=== PATIENT | male | born 1980 | race Asian ===

== ENCOUNTER 2021-09-25 17:31 | Inpatient (IN) | payer OTHER ==
[2021-09-25 20:50] VITALS: BMI 21.2
[2021-09-25] MEDS ORDERED: MENTHOL/PHENOL 1 EACH UD MM PRN (22:54)
[2021-09-25] MEDS ORDERED: DICYCLOMINE HCL 10 MG CAPSULE PO PRN (22:54)
[2021-09-25] MEDS ORDERED: MAGNESIUM CITRATE 300 ML BOTTLE PO PRN (22:54)
[2021-09-25] MEDS ORDERED: IBUPROFEN 400 MG TABLET (FP) PO PRN (22:54)
[2021-09-25] MEDS ORDERED: BISMUTH SUBSALICYLATE 524 MG/30 ML PO PRN (22:54)
[2021-09-25] MEDS ORDERED: ONDANSETRON *ODT* 4 MG TABLET SL PRN (22:54)
[2021-09-25] MEDS ORDERED: MAGNESIUM HYDROX 2400MG/30ML ORAL SUSPENSION 30 ML CUP PO PRN (22:54)
[2021-09-25] MEDS ORDERED: NICOTINE POLACRILEX 2 MG GUM BUC PRN (22:54)
[2021-09-25] MEDS ORDERED: MAG HYDROX/AL HYDROX/SIMETH 30 ML UNIT-DOSE CUP PO PRN (22:54)
[2021-09-25] MEDS ORDERED: ACETAMINOPHEN 325 MG TABLET (FP) PO PRN (22:54)
[2021-09-26] MEDS: chlordiazePOXIDE HCL 25 MG CAPSULE PO SCH ×5 (02:28→22:47)
[2021-09-26] MEDS: PRENATAL VITAMINS W/ FOLIC ACID TABLET (FP) PO SCH (10:28)
[2021-09-26 12:29] LABS: HEMATOCRIT 36.6 % (35.4-49); HEMOGLOBIN 11.8 GM/dL (11.7-16.9); MCH 32.9 pg (25.7-33.7); MCHC 32.2 g/dl (32.0-35.9); MEAN PLT VOLUME 8.4 fl (7.5-11.1); PLATELET COUNT 317 10^3/uL (134-434); RBC 3.59 M/mm3 (4.00-5.60); RDW 13.8 % (11.9-15.9); WHITE BLOOD COUNT 7.5 K/mm3 (4.0-10.0)
[2021-09-26 12:34] LABS: BILIRUBIN,TOTAL 0.4 mg/dL (0.2-1); CREATININE 0.9 mg/dL (0.55-1.3); TOT PROT 6.9 g/dl (6.4-8.2)
[2021-09-26 12:37] LABS: ALBUMIN 3.1 g/dl (3.4-5.0)
[2021-09-26 12:38] LABS: BLOOD UREA NITROGEN 10.3 mg/dL (7-18)
[2021-09-26 12:39] LABS: CALCIUM 9.3 mg/dL (8.5-10.1)
[2021-09-26] MEDS: ACETAMINOPHEN 325 MG TABLET (FP) PO PRN (13:45)
[2021-09-26] MEDS: THIAMINE HCL 100 MG TABLET (FP) PO SCH (22:46)
[2021-09-26] MEDS: MELATONIN 5 MG TABLETS PO SCH (22:46)
[2021-09-27] MEDS: chlordiazePOXIDE HCL 25 MG CAPSULE PO PRN ×2 (02:18→12:39)
[2021-09-27] MEDS: chlordiazePOXIDE HCL 25 MG CAPSULE PO SCH ×4 (05:58→22:17)
[2021-09-27] MEDS: METHOCARBAMOL 500 MG TABLET PO PRN ×2 (06:00→23:35)
[2021-09-27] MEDS: PRENATAL VITAMINS W/ FOLIC ACID TABLET (FP) PO SCH (10:27)
[2021-09-27] MEDS ORDERED: MODERNA COVID-19 VACC,MRNA/PF 100 MCG/0.5 ML IM ONE (13:00)
[2021-09-27] MEDS: hydrOXYzine PAMOATE 25 MG CAPSULE (FP) PO PRN ×2 (18:02→22:19)
[2021-09-27] MEDS: THIAMINE HCL 100 MG TABLET (FP) PO SCH (22:17)
[2021-09-27] MEDS: MELATONIN 5 MG TABLETS PO SCH (22:18)
[2021-09-28] MEDS: chlordiazePOXIDE HCL 10 MG CAPSULE PO PRN ×2 (02:07→19:16)
[2021-09-28] MEDS: hydrOXYzine PAMOATE 25 MG CAPSULE (FP) PO PRN ×3 (04:48→22:15)
[2021-09-28] MEDS: chlordiazePOXIDE HCL 10 MG CAPSULE PO SCH ×4 (04:49→22:14)
[2021-09-28] MEDS: ACETAMINOPHEN 325 MG TABLET (FP) PO PRN ×2 (06:45→16:33)
[2021-09-28] MEDS: PRENATAL VITAMINS W/ FOLIC ACID TABLET (FP) PO SCH (10:06)
[2021-09-28] MEDS: METHOCARBAMOL 500 MG TABLET PO PRN ×2 (10:08→22:15)
[2021-09-28] MEDS: ARTIFICIAL TEARS (POLYVINYL ALCOHOL) OPTH DROPS OU SCH ×2 (13:53→22:17)
[2021-09-28] MEDS ORDERED: CALAMINE 8% TOPICAL LOTION 177 ML BOTTLE TP PRN (19:15)
[2021-09-28] MEDS: MELATONIN 5 MG TABLETS PO SCH (22:15)
[2021-09-28] MEDS: THIAMINE HCL 100 MG TABLET (FP) PO SCH (22:15)
[2021-09-29] MEDS: hydrOXYzine PAMOATE 25 MG CAPSULE (FP) PO PRN ×2 (02:24→22:19)
[2021-09-29] MEDS: chlordiazePOXIDE HCL 10 MG CAPSULE PO SCH ×2 (06:00→17:53)
[2021-09-29] MEDS: ARTIFICIAL TEARS (POLYVINYL ALCOHOL) OPTH DROPS OU SCH ×3 (06:01→22:20)
[2021-09-29] MEDS: PRENATAL VITAMINS W/ FOLIC ACID TABLET (FP) PO SCH (10:24)
[2021-09-29] MEDS: METHOCARBAMOL 500 MG TABLET PO PRN ×2 (10:25→22:28)
[2021-09-29] MEDS: ACETAMINOPHEN 325 MG TABLET (FP) PO PRN (18:50)
[2021-09-29] MEDS ORDERED: traZODone HCL 50 MG TABLET (FP) PO SCH (22:00)
[2021-09-29] MEDS: THIAMINE HCL 100 MG TABLET (FP) PO SCH (22:19)
[2021-09-29] MEDS: MELATONIN 5 MG TABLETS PO SCH (22:19)
[2021-09-30] MEDS: ACETAMINOPHEN 325 MG TABLET (FP) PO PRN (00:23)
[2021-09-30] MEDS ORDERED: chlordiazePOXIDE HCL 10 MG CAPSULE PO ONE (05:00)
[2021-09-30] MEDS: ARTIFICIAL TEARS (POLYVINYL ALCOHOL) OPTH DROPS OU SCH (05:51)
[2021-09-30] MEDS: METHOCARBAMOL 500 MG TABLET PO PRN (05:54)
[2021-09-30] MEDS: PRENATAL VITAMINS W/ FOLIC ACID TABLET (FP) PO SCH (10:27)
[2021-09-30 13:11] VITALS: BP 112/67; PULSE 113; TEMP 97.7
== END 2021-09-30 13:37 | disposition home or self-care (01) | DRG 775 ==
LOC: YASAS 17:31 → Y3N 23:07
PROVIDERS: ADMIT Allergy & Immunology; ATTEND Allergy & Immunology
PROC: HZ2ZZZZ Detoxification Services for Substance Abuse Treatment (ICD-10-PCS; principal; 2021-09-25)
DX: F10.230 Alcohol dependence with withdrawal, uncomplicated (principal); F13.20 Sedative, hypnotic or anxiolytic dependence, uncomplicated; F17.210 Nicotine dependence, cigarettes, uncomplicated; G47.00 Insomnia, unspecified; Z56.0 Unemployment, unspecified
CPT/HCPCS: 0011A; 36415; 80053; 82962; 85027; 86780; 91301; C9803; U0003; U0005

== ENCOUNTER 2021-11-14 09:32 | Inpatient (IN) | payer OTHER ==
[2021-11-14] MEDS ORDERED: MAG HYDROX/AL HYDROX/SIMETH 30 ML UNIT-DOSE CUP PO PRN (10:01)
[2021-11-14] MEDS ORDERED: ONDANSETRON *ODT* 4 MG TABLET SL PRN (10:01)
[2021-11-14] MEDS ORDERED: MAGNESIUM HYDROX 2400MG/30ML ORAL SUSPENSION 30 ML CUP PO PRN (10:01)
[2021-11-14] MEDS ORDERED: NICOTINE 10 MG CARTRIDGE (INHALER) IH PRN (10:01)
[2021-11-14] MEDS ORDERED: LOPERAMIDE HCL 2 MG CAPSULE PO PRN (10:01)
[2021-11-14] MEDS ORDERED: BISMUTH SUBSALICYLATE 262 MG/15 ML BTL PO PRN (10:01)
[2021-11-14] MEDS ORDERED: MAGNESIUM CITRATE 300 ML BOTTLE PO PRN (10:01)
[2021-11-14] MEDS ORDERED: ACETAMINOPHEN 325 MG TABLET (FP) PO PRN (10:01)
[2021-11-14 10:55] VITALS: BMI 20.9
[2021-11-14] MEDS: chlordiazePOXIDE HCL 25 MG CAPSULE PO SCH ×3 (11:41→22:19)
[2021-11-14] MEDS: IBUPROFEN 400 MG TABLET (FP) PO PRN ×2 (11:41→17:59)
[2021-11-14] MEDS: NICOTINE 7 MG/24 HOURS TOPICAL PATCH TD SCH (11:41)
[2021-11-14] MEDS: PRENATAL VITAMINS W/ FOLIC ACID TABLET (FP) PO SCH (12:16)
[2021-11-14] MEDS: hydrOXYzine PAMOATE 25 MG CAPSULE (FP) PO SCH ×3 (14:06→22:22)
[2021-11-14 14:21] LABS: HEMATOCRIT 35.2 % (35.4-49); HEMOGLOBIN 11.3 GM/dL (11.7-16.9); MCHC 32.1 g/dl (32.0-35.9); MEAN CELL VOLUME 96.7 fl (80-96); MEAN PLT VOLUME 7.8 fl (7.5-11.1); PLATELET COUNT 240 10^3/uL (134-434); RBC 3.64 M/mm3 (4.00-5.60); RDW 14.5 % (11.9-15.9); WHITE BLOOD COUNT 6.6 K/mm3 (4.0-10.0)
[2021-11-14 14:33] LABS: BLOOD UREA NITROGEN 6.6 mg/dL (7-18)
[2021-11-14 14:35] LABS: ALBUMIN 3.4 g/dl (3.4-5.0); CALCIUM 8.9 mg/dL (8.5-10.1)
[2021-11-14 14:37] LABS: BILIRUBIN,TOTAL 0.6 mg/dL (0.2-1)
[2021-11-14 14:38] LABS: CREATININE 0.7 mg/dL (0.55-1.3); TOT PROT 7.3 g/dl (6.4-8.2)
[2021-11-14] MEDS ORDERED: SUVOREXANT 10 MG TABLET PO PRN (22:00)
[2021-11-14] MEDS ORDERED: MELATONIN 5 MG TABLETS PO SCH (22:00)
[2021-11-14] MEDS: THIAMINE HCL 100 MG TABLET (FP) PO SCH (22:20)
[2021-11-15] MEDS: METHOCARBAMOL 500 MG TABLET PO PRN ×2 (01:26→10:56)
[2021-11-15] MEDS: chlordiazePOXIDE HCL 25 MG CAPSULE PO PRN (01:26)
[2021-11-15] MEDS: chlordiazePOXIDE HCL 25 MG CAPSULE PO SCH ×4 (05:38→22:20)
[2021-11-15] MEDS: hydrOXYzine PAMOATE 25 MG CAPSULE (FP) PO SCH ×5 (05:38→22:20)
[2021-11-15] MEDS: IBUPROFEN 400 MG TABLET (FP) PO PRN (05:39)
[2021-11-15] MEDS: PRENATAL VITAMINS W/ FOLIC ACID TABLET (FP) PO SCH (11:38)
[2021-11-15] MEDS: HYDROCORTISONE 0.5% TOPICAL CREAM 30 GM TUBE TP SCH ×2 (11:38→22:21)
[2021-11-15] MEDS: NICOTINE 7 MG/24 HOURS TOPICAL PATCH TD SCH (11:39)
[2021-11-15] MEDS: ARTIFICIAL TEARS (POLYVINYL ALCOHOL) OPTH DROPS OU SCH ×2 (14:59→22:21)
[2021-11-15] MEDS: THIAMINE HCL 100 MG TABLET (FP) PO SCH (22:20)
[2021-11-16] MEDS: METHOCARBAMOL 500 MG TABLET PO PRN ×3 (01:31→22:15)
[2021-11-16] MEDS: IBUPROFEN 600 MG TABLET (FP) PO PRN ×2 (01:34→17:59)
[2021-11-16] MEDS: hydrOXYzine PAMOATE 25 MG CAPSULE (FP) PO SCH ×5 (05:30→22:12)
[2021-11-16] MEDS: ARTIFICIAL TEARS (POLYVINYL ALCOHOL) OPTH DROPS OU SCH ×3 (05:30→22:14)
[2021-11-16] MEDS: chlordiazePOXIDE HCL 25 MG CAPSULE PO SCH ×4 (05:30→22:12)
[2021-11-16] MEDS: MENTHOL/PHENOL 1 EACH UD MM PRN ×2 (05:31→14:12)
[2021-11-16] MEDS: ACETAMINOPHEN 325 MG TABLET (FP) PO PRN ×2 (05:31→10:35)
[2021-11-16] MEDS: PRENATAL VITAMINS W/ FOLIC ACID TABLET (FP) PO SCH (10:32)
[2021-11-16] MEDS: HYDROCORTISONE 0.5% TOPICAL CREAM 30 GM TUBE TP SCH ×2 (10:34→22:18)
[2021-11-16] MEDS: NICOTINE 7 MG/24 HOURS TOPICAL PATCH TD SCH (10:36)
[2021-11-16] MEDS: chlordiazePOXIDE HCL 25 MG CAPSULE PO PRN (14:01)
[2021-11-16] MEDS ORDERED: SUVOREXANT 10 MG TABLET PO PRN (22:00)
[2021-11-16] MEDS ORDERED: SUVOREXANT 15 MG TABLET PO PRN (22:00)
[2021-11-16] MEDS: THIAMINE HCL 100 MG TABLET (FP) PO SCH (22:11)
[2021-11-17] MEDS ORDERED: chlordiazePOXIDE HCL 10 MG CAPSULE PO PRN
[2021-11-17] MEDS: ARTIFICIAL TEARS (POLYVINYL ALCOHOL) OPTH DROPS OU SCH ×3 (04:59→22:16)
[2021-11-17] MEDS: hydrOXYzine PAMOATE 25 MG CAPSULE (FP) PO SCH ×5 (04:59→22:16)
[2021-11-17] MEDS: chlordiazePOXIDE HCL 10 MG CAPSULE PO SCH ×4 (05:00→22:15)
[2021-11-17] MEDS: METHOCARBAMOL 500 MG TABLET PO PRN (05:01)
[2021-11-17] MEDS: NICOTINE 7 MG/24 HOURS TOPICAL PATCH TD SCH (10:46)
[2021-11-17] MEDS: HYDROCORTISONE 0.5% TOPICAL CREAM 30 GM TUBE TP SCH ×2 (10:46→22:15)
[2021-11-17] MEDS: PRENATAL VITAMINS W/ FOLIC ACID TABLET (FP) PO SCH (10:47)
[2021-11-17] MEDS: IBUPROFEN 600 MG TABLET (FP) PO PRN ×2 (10:51→18:19)
[2021-11-17 14:07] LABS: SARS-CoV-2 NAA Not Detected (Not Detected)
[2021-11-17] MEDS: THIAMINE HCL 100 MG TABLET (FP) PO SCH (22:15)
[2021-11-17] MEDS: SUVOREXANT 20 MG TABLET PO PRN (22:17)
[2021-11-18] MEDS: METHOCARBAMOL 500 MG TABLET PO PRN ×3 (01:00→17:03)
[2021-11-18] MEDS: ACETAMINOPHEN 325 MG TABLET (FP) PO PRN (03:18)
[2021-11-18] MEDS: hydrOXYzine PAMOATE 25 MG CAPSULE (FP) PO SCH (05:42)
[2021-11-18] MEDS: chlordiazePOXIDE HCL 10 MG CAPSULE PO SCH ×2 (05:42→17:02)
[2021-11-18] MEDS: ARTIFICIAL TEARS (POLYVINYL ALCOHOL) OPTH DROPS OU SCH ×3 (05:44→22:16)
[2021-11-18] MEDS: HYDROCORTISONE 0.5% TOPICAL CREAM 30 GM TUBE TP SCH ×2 (10:32→22:16)
[2021-11-18] MEDS: NICOTINE 7 MG/24 HOURS TOPICAL PATCH TD SCH (10:33)
[2021-11-18] MEDS: PRENATAL VITAMINS W/ FOLIC ACID TABLET (FP) PO SCH (10:33)
[2021-11-18] MEDS ORDERED: hydrOXYzine PAMOATE 25 MG CAPSULE (FP) PO PRN (12:00)
[2021-11-18] MEDS: THIAMINE HCL 100 MG TABLET (FP) PO SCH (22:13)
[2021-11-18] MEDS: SUVOREXANT 20 MG TABLET PO PRN (22:15)
[2021-11-19] MEDS: METHOCARBAMOL 500 MG TABLET PO PRN
[2021-11-19] MEDS: ACETAMINOPHEN 325 MG TABLET (FP) PO PRN ×2 (03:14→11:33)
[2021-11-19] MEDS ORDERED: chlordiazePOXIDE HCL 10 MG CAPSULE PO ONE (05:00)
[2021-11-19] MEDS: IBUPROFEN 600 MG TABLET (FP) PO PRN (05:52)
[2021-11-19] MEDS: ARTIFICIAL TEARS (POLYVINYL ALCOHOL) OPTH DROPS OU SCH (05:53)
[2021-11-19 09:06] VITALS: BP 133/97; PULSE 86; TEMP 97.3
[2021-11-19] MEDS: PRENATAL VITAMINS W/ FOLIC ACID TABLET (FP) PO SCH (10:50)
[2021-11-19] MEDS: HYDROCORTISONE 0.5% TOPICAL CREAM 30 GM TUBE TP SCH (10:50)
[2021-11-19] MEDS: NICOTINE 7 MG/24 HOURS TOPICAL PATCH TD SCH (10:51)
== END 2021-11-19 13:56 | disposition other institution (70) | DRG 775 ==
LOC: YASAS 09:32 → Y6N 11:36
PROVIDERS: ADMIT Allergy & Immunology; ATTEND Allergy & Immunology
PROC: HZ2ZZZZ Detoxification Services for Substance Abuse Treatment (ICD-10-PCS; principal; 2021-11-14)
DX: F10.230 Alcohol dependence with withdrawal, uncomplicated (principal); F17.210 Nicotine dependence, cigarettes, uncomplicated; F10.282 Alcohol dependence with alcohol-induced sleep disorder; D64.9 Anemia, unspecified; G47.00 Insomnia, unspecified; M54.50 Low back pain, unspecified; G89.29 Other chronic pain
CPT/HCPCS: 36415; 80053; 85027; 86780; C9803; U0003; U0005

== ENCOUNTER 2021-11-19 12:17 | Inpatient (IN) | payer OTHER ==
[2021-11-19] MEDS ORDERED: LOPERAMIDE HCL 2 MG CAPSULE PO PRN (13:59)
[2021-11-19] MEDS ORDERED: NICOTINE 10 MG CARTRIDGE (INHALER) IH PRN (13:59)
[2021-11-19] MEDS ORDERED: MAG HYDROX/AL HYDROX/SIMETH 30 ML UNIT-DOSE CUP PO PRN (13:59)
[2021-11-19] MEDS ORDERED: P-EPHED 60MG/TRIPROLIDI 2.5MG TABLET PO PRN (13:59)
[2021-11-19] MEDS ORDERED: guaiFENesin 200 MG/10 ML 10 ML UNIT-DOSE CUPS PO PRN (13:59)
[2021-11-19] MEDS ORDERED: MAGNESIUM CITRATE 300 ML BOTTLE PO PRN (13:59)
[2021-11-19] MEDS ORDERED: MAGNESIUM HYDROX 2400MG/30ML ORAL SUSPENSION 30 ML CUP PO PRN (13:59)
[2021-11-19] MEDS: hydrOXYzine PAMOATE 25 MG CAPSULE (FP) PO SCH ×3 (14:45→21:45)
[2021-11-19] MEDS: IBUPROFEN 400 MG TABLET (FP) PO PRN (17:19)
[2021-11-19] MEDS: MELATONIN 5 MG TABLETS PO SCH (21:45)
[2021-11-19] MEDS: THIAMINE HCL 100 MG TABLET (FP) PO SCH (21:45)
[2021-11-19] MEDS: SUVOREXANT 15 MG TABLET PO PRN (22:10)
[2021-11-19] MEDS: ARTIFICIAL TEARS (POLYVINYL ALCOHOL) OPTH DROPS OU SCH (22:18)
[2021-11-20] MEDS: hydrOXYzine PAMOATE 25 MG CAPSULE (FP) PO SCH ×5 (06:16→21:02)
[2021-11-20] MEDS: IBUPROFEN 400 MG TABLET (FP) PO PRN (08:43)
[2021-11-20] MEDS: NICOTINE 7 MG/24 HOURS TOPICAL PATCH TD SCH (09:35)
[2021-11-20] MEDS: ARTIFICIAL TEARS (POLYVINYL ALCOHOL) OPTH DROPS OU SCH ×2 (09:35→21:02)
[2021-11-20] MEDS: PRENATAL VITAMINS W/ FOLIC ACID TABLET (FP) PO SCH (09:36)
[2021-11-20] MEDS: HYDROCORTISONE 1% TOPICAL CREAM 30 GM TUBE TP SCH ×2 (13:03→21:03)
[2021-11-20] MEDS: LIDOCAINE 5% TOPICAL PATCH TP SCH (13:04)
[2021-11-20] MEDS: MELATONIN 5 MG TABLETS PO SCH (21:02)
[2021-11-20] MEDS: SUVOREXANT 15 MG TABLET PO PRN (21:02)
[2021-11-20] MEDS: THIAMINE HCL 100 MG TABLET (FP) PO SCH (21:02)
[2021-11-20] MEDS: LIDOCAINE PATCH REMOVAL MC SCH (21:03)
[2021-11-21] MEDS: hydrOXYzine PAMOATE 25 MG CAPSULE (FP) PO SCH ×5 (06:15→21:15)
[2021-11-21] MEDS: PRENATAL VITAMINS W/ FOLIC ACID TABLET (FP) PO SCH (09:23)
[2021-11-21] MEDS: LIDOCAINE 5% TOPICAL PATCH TP SCH (09:23)
[2021-11-21] MEDS: ARTIFICIAL TEARS (POLYVINYL ALCOHOL) OPTH DROPS OU SCH ×2 (09:23→21:30)
[2021-11-21] MEDS: NICOTINE 7 MG/24 HOURS TOPICAL PATCH TD SCH (09:26)
[2021-11-21] MEDS: HYDROCORTISONE 1% TOPICAL CREAM 30 GM TUBE TP SCH ×2 (09:26→22:01)
[2021-11-21] MEDS: IBUPROFEN 400 MG TABLET (FP) PO PRN (18:55)
[2021-11-21] MEDS: LIDOCAINE PATCH REMOVAL MC SCH (21:15)
[2021-11-21] MEDS: THIAMINE HCL 100 MG TABLET (FP) PO SCH (21:15)
[2021-11-21] MEDS: SUVOREXANT 20 MG TABLET PO PRN (21:17)
[2021-11-21] MEDS ORDERED: SUVOREXANT 10 MG TABLET PO PRN (22:00)
[2021-11-22] MEDS: ACETAMINOPHEN 325 MG TABLET (FP) PO PRN ×2 (00:50→09:38)
[2021-11-22] MEDS: hydrOXYzine PAMOATE 25 MG CAPSULE (FP) PO SCH ×5 (06:41→21:44)
[2021-11-22] MEDS: IBUPROFEN 400 MG TABLET (FP) PO PRN ×2 (06:51→21:46)
[2021-11-22] MEDS: ARTIFICIAL TEARS (POLYVINYL ALCOHOL) OPTH DROPS OU SCH (09:35)
[2021-11-22] MEDS: LIDOCAINE 5% TOPICAL PATCH TP SCH (09:36)
[2021-11-22] MEDS: HYDROCORTISONE 1% TOPICAL CREAM 30 GM TUBE TP SCH ×2 (09:36→21:48)
[2021-11-22] MEDS: NICOTINE 7 MG/24 HOURS TOPICAL PATCH TD SCH (09:36)
[2021-11-22] MEDS: PRENATAL VITAMINS W/ FOLIC ACID TABLET (FP) PO SCH (09:37)
[2021-11-22] MEDS: THIAMINE HCL 100 MG TABLET (FP) PO SCH (21:44)
[2021-11-22] MEDS: SUVOREXANT 20 MG TABLET PO PRN (21:45)
[2021-11-22] MEDS: LIDOCAINE PATCH REMOVAL MC SCH (21:47)
[2021-11-23] MEDS: METHOCARBAMOL 500 MG TABLET PO PRN ×2 (02:10→21:57)
[2021-11-23] MEDS: hydrOXYzine PAMOATE 25 MG CAPSULE (FP) PO SCH ×5 (06:29→21:57)
[2021-11-23] MEDS: HYDROCORTISONE 1% TOPICAL CREAM 30 GM TUBE TP SCH ×2 (09:36→21:58)
[2021-11-23] MEDS: LIDOCAINE 5% TOPICAL PATCH TP SCH (09:36)
[2021-11-23] MEDS: NICOTINE 7 MG/24 HOURS TOPICAL PATCH TD SCH (09:37)
[2021-11-23] MEDS: PRENATAL VITAMINS W/ FOLIC ACID TABLET (FP) PO SCH (09:38)
[2021-11-23] MEDS: IBUPROFEN 400 MG TABLET (FP) PO PRN (09:41)
[2021-11-23 12:08] LABS: SARS-CoV-2 NAA Not Detected (Not Detected)
[2021-11-23] MEDS: SUVOREXANT 20 MG TABLET PO PRN (21:54)
[2021-11-23] MEDS: LIDOCAINE PATCH REMOVAL MC SCH (21:56)
[2021-11-23] MEDS: THIAMINE HCL 100 MG TABLET (FP) PO SCH (21:57)
[2021-11-24] MEDS: hydrOXYzine PAMOATE 25 MG CAPSULE (FP) PO SCH ×5 (06:31→21:05)
[2021-11-24] MEDS: TETRAHYDROZOLINE HCL EYE DROPS OD PRN (09:39)
[2021-11-24] MEDS: LIDOCAINE 5% TOPICAL PATCH TP SCH (09:39)
[2021-11-24] MEDS: HYDROCORTISONE 1% TOPICAL CREAM 30 GM TUBE TP SCH ×2 (09:39→21:04)
[2021-11-24] MEDS: NICOTINE 7 MG/24 HOURS TOPICAL PATCH TD SCH (09:40)
[2021-11-24] MEDS: PRENATAL VITAMINS W/ FOLIC ACID TABLET (FP) PO SCH (09:40)
[2021-11-24] MEDS: IBUPROFEN 400 MG TABLET (FP) PO PRN (09:41)
[2021-11-24] MEDS ORDERED: MODERNA COVID-19 VACC,MRNA/PF 100 MCG/0.5 ML IM ONE (10:00)
[2021-11-24] MEDS: LIDOCAINE PATCH REMOVAL MC SCH (21:04)
[2021-11-24] MEDS: MELATONIN 5 MG TABLETS PO PRN (21:04)
[2021-11-24] MEDS: THIAMINE HCL 100 MG TABLET (FP) PO SCH (21:04)
[2021-11-24] MEDS: METHOCARBAMOL 500 MG TABLET PO PRN (21:05)
[2021-11-24] MEDS: SUVOREXANT 20 MG TABLET PO PRN (21:05)
[2021-11-25] MEDS: hydrOXYzine PAMOATE 25 MG CAPSULE (FP) PO SCH ×5 (06:18→21:37)
[2021-11-25] MEDS: HYDROCORTISONE 1% TOPICAL CREAM 30 GM TUBE TP SCH ×2 (09:11→21:43)
[2021-11-25] MEDS: NICOTINE 7 MG/24 HOURS TOPICAL PATCH TD SCH (09:12)
[2021-11-25] MEDS: PRENATAL VITAMINS W/ FOLIC ACID TABLET (FP) PO SCH (09:13)
[2021-11-25] MEDS: LIDOCAINE 5% TOPICAL PATCH TP SCH (09:13)
[2021-11-25] MEDS: METHOCARBAMOL 500 MG TABLET PO PRN (09:14)
[2021-11-25] MEDS: TETRAHYDROZOLINE HCL EYE DROPS OD PRN (09:22)
[2021-11-25] MEDS: IBUPROFEN 400 MG TABLET (FP) PO PRN (17:06)
[2021-11-25] MEDS: THIAMINE HCL 100 MG TABLET (FP) PO SCH (21:37)
[2021-11-25] MEDS: SUVOREXANT 20 MG TABLET PO PRN (21:41)
[2021-11-25] MEDS: MELATONIN 5 MG TABLETS PO PRN (21:42)
[2021-11-25] MEDS: LIDOCAINE PATCH REMOVAL MC SCH (21:43)
[2021-11-26] MEDS: METHOCARBAMOL 500 MG TABLET PO PRN ×3 (01:05→21:05)
[2021-11-26] MEDS: MELATONIN 5 MG TABLETS PO PRN ×2 (01:06→21:03)
[2021-11-26] MEDS: hydrOXYzine PAMOATE 25 MG CAPSULE (FP) PO SCH ×5 (06:35→21:02)
[2021-11-26] MEDS: PRENATAL VITAMINS W/ FOLIC ACID TABLET (FP) PO SCH (09:36)
[2021-11-26] MEDS: TETRAHYDROZOLINE HCL EYE DROPS OD PRN ×2 (09:38→21:08)
[2021-11-26] MEDS: LIDOCAINE 5% TOPICAL PATCH TP SCH (10:04)
[2021-11-26] MEDS: NICOTINE 7 MG/24 HOURS TOPICAL PATCH TD SCH (10:05)
[2021-11-26] MEDS: HYDROCORTISONE 1% TOPICAL CREAM 30 GM TUBE TP SCH ×2 (10:05→21:06)
[2021-11-26] MEDS: IBUPROFEN 400 MG TABLET (FP) PO PRN ×2 (13:47→21:05)
[2021-11-26] MEDS: THIAMINE HCL 100 MG TABLET (FP) PO SCH (21:03)
[2021-11-26] MEDS: SUVOREXANT 20 MG TABLET PO PRN (21:04)
[2021-11-26] MEDS: LIDOCAINE PATCH REMOVAL MC SCH (21:06)
[2021-11-27] MEDS: IBUPROFEN 400 MG TABLET (FP) PO PRN (03:35)
[2021-11-27] MEDS: hydrOXYzine PAMOATE 25 MG CAPSULE (FP) PO SCH ×5 (06:24→21:40)
[2021-11-27] MEDS: LIDOCAINE 5% TOPICAL PATCH TP SCH (09:52)
[2021-11-27] MEDS: HYDROCORTISONE 1% TOPICAL CREAM 30 GM TUBE TP SCH (09:52)
[2021-11-27] MEDS: PRENATAL VITAMINS W/ FOLIC ACID TABLET (FP) PO SCH (09:53)
[2021-11-27] MEDS: METHOCARBAMOL 500 MG TABLET PO PRN ×2 (09:54→21:36)
[2021-11-27] MEDS: NICOTINE 7 MG/24 HOURS TOPICAL PATCH TD SCH (09:54)
[2021-11-27] MEDS ORDERED: COLLOIDAL OATMEAL 1 BAR EACH TP PRN (10:10)
[2021-11-27] MEDS: BENZOYL PEROXIDE 5% 60 GM GEL..GRAM. TP SCH (11:00)
[2021-11-27] MEDS: THIAMINE HCL 100 MG TABLET (FP) PO SCH (21:36)
[2021-11-27] MEDS: MELATONIN 5 MG TABLETS PO PRN (21:39)
[2021-11-28] MEDS: METHOCARBAMOL 500 MG TABLET PO PRN ×3 (03:59→17:46)
[2021-11-28] MEDS: hydrOXYzine PAMOATE 25 MG CAPSULE (FP) PO SCH ×5 (06:19→21:10)
[2021-11-28] MEDS: PRENATAL VITAMINS W/ FOLIC ACID TABLET (FP) PO SCH (10:10)
[2021-11-28] MEDS: NICOTINE 7 MG/24 HOURS TOPICAL PATCH TD SCH (10:10)
[2021-11-28] MEDS: BENZOYL PEROXIDE 5% 60 GM GEL..GRAM. TP SCH (10:11)
[2021-11-28] MEDS: TETRAHYDROZOLINE HCL EYE DROPS OD PRN ×2 (10:13→21:14)
[2021-11-28] MEDS: IBUPROFEN 400 MG TABLET (FP) PO PRN (17:46)
[2021-11-28] MEDS: THIAMINE HCL 100 MG TABLET (FP) PO SCH (21:10)
[2021-11-28] MEDS: MELATONIN 5 MG TABLETS PO PRN (21:11)
[2021-11-28] MEDS: SUVOREXANT 20 MG TABLET PO PRN (21:13)
[2021-11-29] MEDS: hydrOXYzine PAMOATE 25 MG CAPSULE (FP) PO SCH ×5 (06:22→21:27)
[2021-11-29] MEDS: METHOCARBAMOL 500 MG TABLET PO PRN ×3 (06:22→21:29)
[2021-11-29] MEDS: PRENATAL VITAMINS W/ FOLIC ACID TABLET (FP) PO SCH (09:45)
[2021-11-29] MEDS: TETRAHYDROZOLINE HCL EYE DROPS OD PRN ×2 (09:45→21:31)
[2021-11-29] MEDS: BENZOYL PEROXIDE 5% 60 GM GEL..GRAM. TP SCH (09:45)
[2021-11-29] MEDS: NICOTINE 7 MG/24 HOURS TOPICAL PATCH TD SCH (09:45)
[2021-11-29] MEDS: IBUPROFEN 400 MG TABLET (FP) PO PRN ×2 (09:47→18:02)
[2021-11-29] MEDS: THIAMINE HCL 100 MG TABLET (FP) PO SCH (21:27)
[2021-11-29] MEDS: MELATONIN 5 MG TABLETS PO PRN (21:27)
[2021-11-29] MEDS: SUVOREXANT 20 MG TABLET PO PRN (21:29)
[2021-11-30] MEDS: METHOCARBAMOL 500 MG TABLET PO PRN ×2 (06:22→21:36)
[2021-11-30] MEDS: hydrOXYzine PAMOATE 25 MG CAPSULE (FP) PO SCH ×5 (06:22→21:35)
[2021-11-30] MEDS: NICOTINE 7 MG/24 HOURS TOPICAL PATCH TD SCH (09:54)
[2021-11-30] MEDS: BENZOYL PEROXIDE 5% 60 GM GEL..GRAM. TP SCH (09:54)
[2021-11-30] MEDS: PRENATAL VITAMINS W/ FOLIC ACID TABLET (FP) PO SCH (09:55)
[2021-11-30] MEDS: IBUPROFEN 400 MG TABLET (FP) PO PRN (09:56)
[2021-11-30] MEDS: THIAMINE HCL 100 MG TABLET (FP) PO SCH (21:34)
[2021-11-30] MEDS: MELATONIN 5 MG TABLETS PO PRN (21:34)
[2021-11-30] MEDS: SUVOREXANT 20 MG TABLET PO PRN (21:36)
[2021-12-01] MEDS: hydrOXYzine PAMOATE 25 MG CAPSULE (FP) PO SCH ×5 (06:17→21:55)
[2021-12-01] MEDS: METHOCARBAMOL 500 MG TABLET PO PRN ×2 (06:17→23:10)
[2021-12-01] MEDS: BENZOYL PEROXIDE 5% 60 GM GEL..GRAM. TP SCH (09:55)
[2021-12-01] MEDS: NICOTINE 7 MG/24 HOURS TOPICAL PATCH TD SCH (09:56)
[2021-12-01] MEDS: PRENATAL VITAMINS W/ FOLIC ACID TABLET (FP) PO SCH (09:56)
[2021-12-01] MEDS: NALTREXONE HCL 50 MG TABLET PO SCH (13:10)
[2021-12-01] MEDS: MELATONIN 5 MG TABLETS PO PRN (21:55)
[2021-12-01] MEDS: THIAMINE HCL 100 MG TABLET (FP) PO SCH (21:55)
[2021-12-01] MEDS: SUVOREXANT 20 MG TABLET PO PRN (21:57)
[2021-12-01] MEDS: TETRAHYDROZOLINE HCL EYE DROPS OD PRN (23:10)
[2021-12-02] MEDS: hydrOXYzine PAMOATE 25 MG CAPSULE (FP) PO SCH ×2 (06:27→10:29)
[2021-12-02] MEDS: METHOCARBAMOL 500 MG TABLET PO PRN ×2 (06:28→21:48)
[2021-12-02] MEDS: BENZOYL PEROXIDE 5% 60 GM GEL..GRAM. TP SCH (09:47)
[2021-12-02] MEDS: NICOTINE 7 MG/24 HOURS TOPICAL PATCH TD SCH (09:47)
[2021-12-02] MEDS: NALTREXONE HCL 50 MG TABLET PO SCH (09:47)
[2021-12-02] MEDS: PRENATAL VITAMINS W/ FOLIC ACID TABLET (FP) PO SCH (09:47)
[2021-12-02] MEDS: THIAMINE HCL 100 MG TABLET (FP) PO SCH (21:48)
[2021-12-02] MEDS: MELATONIN 5 MG TABLETS PO PRN (21:48)
[2021-12-02] MEDS: hydrOXYzine PAMOATE 25 MG CAPSULE (FP) PO PRN (21:48)
[2021-12-02] MEDS: SUVOREXANT 20 MG TABLET PO PRN (21:53)
[2021-12-02] MEDS: IBUPROFEN 400 MG TABLET (FP) PO PRN (21:56)
[2021-12-03] MEDS: hydrOXYzine PAMOATE 25 MG CAPSULE (FP) PO PRN ×2 (06:44→21:09)
[2021-12-03] MEDS: METHOCARBAMOL 500 MG TABLET PO PRN ×2 (06:44→18:15)
[2021-12-03] MEDS ORDERED: NALTREXONE MICROSPHERES (VIVITROL) 380 MG DISP.SYRIN IM ONE (10:00)
[2021-12-03] MEDS: NICOTINE 7 MG/24 HOURS TOPICAL PATCH TD SCH (10:08)
[2021-12-03] MEDS: PRENATAL VITAMINS W/ FOLIC ACID TABLET (FP) PO SCH (10:08)
[2021-12-03] MEDS: TETRAHYDROZOLINE HCL EYE DROPS OD PRN ×2 (10:10→21:10)
[2021-12-03] MEDS: SUVOREXANT 20 MG TABLET PO PRN (21:09)
[2021-12-03] MEDS: THIAMINE HCL 100 MG TABLET (FP) PO SCH (21:09)
[2021-12-03] MEDS: MELATONIN 5 MG TABLETS PO PRN (21:09)
[2021-12-04] MEDS: METHOCARBAMOL 500 MG TABLET PO PRN ×2 (06:28→21:36)
[2021-12-04] MEDS: hydrOXYzine PAMOATE 25 MG CAPSULE (FP) PO PRN ×2 (06:28→17:21)
[2021-12-04 06:41] VITALS: TEMP 97.1
[2021-12-04] MEDS: PRENATAL VITAMINS W/ FOLIC ACID TABLET (FP) PO SCH (09:53)
[2021-12-04] MEDS: NICOTINE 7 MG/24 HOURS TOPICAL PATCH TD SCH (09:54)
[2021-12-04] MEDS: IBUPROFEN 400 MG TABLET (FP) PO PRN (17:21)
[2021-12-04] MEDS: MELATONIN 5 MG TABLETS PO PRN (21:35)
[2021-12-04] MEDS: THIAMINE HCL 100 MG TABLET (FP) PO SCH (21:36)
[2021-12-04] MEDS ORDERED: SUVOREXANT 10 MG TABLET PO PRN (22:00)
[2021-12-05] MEDS: hydrOXYzine PAMOATE 25 MG CAPSULE (FP) PO PRN (06:20)
[2021-12-05] MEDS: METHOCARBAMOL 500 MG TABLET PO PRN (06:20)
[2021-12-05 06:49] VITALS: BP 118/84; PULSE 89
[2021-12-05] MEDS: NICOTINE 7 MG/24 HOURS TOPICAL PATCH TD SCH (09:30)
[2021-12-05] MEDS: PRENATAL VITAMINS W/ FOLIC ACID TABLET (FP) PO SCH (09:30)
== END 2021-12-05 09:40 | disposition home or self-care (01) | DRG 775 ==
LOC: YASAS 12:17 → Y3E 12:19
PROVIDERS: ADMIT Allergy & Immunology; ATTEND Allergy & Immunology
PROC: HZ2ZZZZ Detoxification Services for Substance Abuse Treatment (ICD-10-PCS; principal; 2021-11-19)
DX: F10.20 Alcohol dependence, uncomplicated (principal); F17.210 Nicotine dependence, cigarettes, uncomplicated; F10.282 Alcohol dependence with alcohol-induced sleep disorder; F41.9 Anxiety disorder, unspecified; L25.9 Unspecified contact dermatitis, unspecified cause; L70.9 Acne, unspecified; M54.50 Low back pain, unspecified; G89.29 Other chronic pain
CPT/HCPCS: 0012A; 91301; C9803; J2315; U0003; U0005

== ENCOUNTER 2023-03-08 10:52 | Inpatient (IN) | payer OTHER ==
[2023-03-08 11:28] VITALS: BMI 19.5
[2023-03-08] MEDS ORDERED: IBUPROFEN 600 MG TABLET (FP) PO PRN (11:56)
[2023-03-08] MEDS ORDERED: MAGNESIUM HYDROX 2400MG/30ML ORAL SUSPENSION 30 ML CUP PO PRN (11:56)
[2023-03-08] MEDS ORDERED: LOPERAMIDE HCL 2 MG CAPSULE PO PRN (11:56)
[2023-03-08] MEDS ORDERED: IBUPROFEN 400 MG TABLET (FP) PO PRN (11:56)
[2023-03-08] MEDS ORDERED: ACETAMINOPHEN 325 MG TABLET (FP) PO PRN (11:56)
[2023-03-08] MEDS ORDERED: DICYCLOMINE HCL 10 MG CAPSULE PO PRN (11:56)
[2023-03-08] MEDS ORDERED: P-EPHED 60MG/TRIPROLIDI 2.5MG TABLET PO PRN (11:56)
[2023-03-08] MEDS ORDERED: POLYETHYLENE GLYCOL (HEALTHYLAX) 3350 17 GM PACKET PO PRN (11:56)
[2023-03-08] MEDS ORDERED: guaiFENesin 600 MG TABLET.ER (FP) PO PRN (11:56)
[2023-03-08] MEDS ORDERED: BENZOCAINE/MENTHOL (CHLORASEPTIC ) LOZENGE MM PRN (11:56)
[2023-03-08] MEDS ORDERED: BENZONATATE 200 MG CAPSULE PO PRN (11:56)
[2023-03-08] MEDS ORDERED: BISMUTH SUBSALICYLATE 524 MG/30 ML PO PRN (11:56)
[2023-03-08] MEDS ORDERED: chlordiazePOXIDE HCL 25 MG CAPSULE PO ONE (12:01)
[2023-03-08] MEDS ORDERED: chlordiazePOXIDE HCL 25 MG CAPSULE PO PRN (12:01)
[2023-03-08] MEDS ORDERED: levETIRAcetam 250 MG TABLET PO SCH (12:30)
[2023-03-08] MEDS ORDERED: chlordiazePOXIDE HCL 25 MG CAPSULE ONE (12:36)
[2023-03-08] MEDS ORDERED: levETIRAcetam 500 MG TABLET (FP) PO ONE (14:10)
[2023-03-08] MEDS: chlordiazePOXIDE HCL 25 MG CAPSULE PO SCH ×2 (17:42→22:34)
[2023-03-08] MEDS: ONDANSETRON *ODT* 4 MG TABLET SL PRN (19:31)
[2023-03-08] MEDS ORDERED: TRIMETHOBENZAMIDE HCL 200MG/2ML INJ IM ONE (20:50)
[2023-03-08] MEDS ORDERED: MELATONIN 5 MG TABLETS PO SCH (22:00)
[2023-03-08] MEDS: levETIRAcetam 500 MG TABLET (FP) PO SCH (22:32)
[2023-03-08] MEDS: THIAMINE HCL 100 MG TABLET (FP) PO SCH (22:33)
[2023-03-08] MEDS: DOXEPIN HCL 25 MG CAPSULE PO SCH (22:33)
[2023-03-08] MEDS: hydrOXYzine PAMOATE 25 MG CAPSULE (FP) PO PRN (23:00)
[2023-03-09] MEDS ORDERED: TRIMETHOBENZAMIDE HCL 200MG/2ML INJ IM ONE (01:50)
[2023-03-09] MEDS: chlordiazePOXIDE HCL 25 MG CAPSULE PO SCH ×4 (05:25→22:15)
[2023-03-09 10:55] LABS: ALBUMIN 4.1 g/dl (3.4-5.0)
[2023-03-09 10:58] LABS: BLOOD UREA NITROGEN 8.5 mg/dL (7-18); CREATININE 0.9 mg/dL (0.55-1.3)
[2023-03-09 11:00] LABS: BILIRUBIN,TOTAL 1.2 mg/dL (0.2-1); TOT PROT 8.4 g/dl (6.4-8.2)
[2023-03-09 11:09] LABS: HEMATOCRIT 39.4 % (35.4-49); HEMOGLOBIN 12.9 GM/dL (11.7-16.9); MCH 29.9 pg (25.7-33.7); MCHC 32.6 g/dl (32.0-35.9); MEAN CELL VOLUME 91.7 fl (80-96); MEAN PLT VOLUME 8.3 fl (7.5-11.1); PLATELET COUNT 190 10^3/uL (134-434); RBC 4.29 M/mm3 (4.00-5.60); RDW 16.7 % (11.9-15.9); WHITE BLOOD COUNT 6.3 K/mm3 (4.0-10.0)
[2023-03-09] MEDS: levETIRAcetam 500 MG TABLET (FP) PO SCH ×2 (12:16→22:14)
[2023-03-09] MEDS: PRENATAL VITAMINS W/ FOLIC ACID TABLET (FP) PO SCH (12:16)
[2023-03-09] MEDS: MAG HYDROX/AL HYDROX/SIMETH 30 ML UNIT-DOSE CUP PO PRN ×2 (14:59→22:17)
[2023-03-09] MEDS: DOXEPIN HCL 25 MG CAPSULE PO SCH (22:14)
[2023-03-09] MEDS: THIAMINE HCL 100 MG TABLET (FP) PO SCH (22:14)
[2023-03-10] MEDS: MAG HYDROX/AL HYDROX/SIMETH 30 ML UNIT-DOSE CUP PO PRN ×2 (05:57→17:05)
[2023-03-10] MEDS: chlordiazePOXIDE HCL 25 MG CAPSULE PO SCH ×2 (05:57→10:19)
[2023-03-10] MEDS: PRENATAL VITAMINS W/ FOLIC ACID TABLET (FP) PO SCH (10:19)
[2023-03-10] MEDS: levETIRAcetam 500 MG TABLET (FP) PO SCH ×2 (10:19→22:11)
[2023-03-10] MEDS ORDERED: TRIMETHOBENZAMIDE HCL 200MG/2ML INJ IM PRN (11:53)
[2023-03-10] MEDS ORDERED: LORazepam 1 MG TABLET PO PRN (11:59)
[2023-03-10] MEDS ORDERED: METOPROLOL TARTRATE 25 MG TABLET (FP) PO SCH (12:00)
[2023-03-10] MEDS: hydrOXYzine PAMOATE 25 MG CAPSULE (FP) PO PRN ×2 (14:47→22:13)
[2023-03-10] MEDS: LORazepam 2 MG TABLET PO SCH ×2 (17:01→22:12)
[2023-03-10] MEDS: ONDANSETRON *ODT* 4 MG TABLET SL PRN (17:03)
[2023-03-10 21:14] VITALS: TEMP 97.5
[2023-03-10] MEDS ORDERED: FAMOTIDINE 20 MG TABLET PO SCH (22:00)
[2023-03-10] MEDS: DOXEPIN HCL 25 MG CAPSULE PO SCH (22:11)
[2023-03-10] MEDS: THIAMINE HCL 100 MG TABLET (FP) PO SCH (22:14)
[2023-03-11] MEDS ORDERED: chlordiazePOXIDE HCL 10 MG CAPSULE PO PRN
[2023-03-11] MEDS ORDERED: LIDOCAINE VISCOUS 2% ORAL/TOP 15 ML UNIT-DOSE CUP MM PRN (00:19)
[2023-03-11] MEDS ORDERED: LORazepam 1 MG TABLET PO SCH (05:00)
[2023-03-11] MEDS ORDERED: chlordiazePOXIDE HCL 10 MG CAPSULE PO SCH (05:00)
[2023-03-11 06:00] VITALS: BP 157/97; PULSE 80; RESP 17
[2023-03-11] MEDS ORDERED: NAPROXEN 375 MG TABLET PO PRN (09:37)
[2023-03-12] MEDS ORDERED: LORazepam 0.5 MG TABLET PO PRN
[2023-03-12] MEDS ORDERED: LORazepam 0.5 MG TABLET PO SCH (05:00)
[2023-03-12] MEDS ORDERED: chlordiazePOXIDE HCL 10 MG CAPSULE PO SCH (05:00)
[2023-03-13] MEDS ORDERED: LORazepam 0.5 MG TABLET PO ONE (05:00)
[2023-03-13] MEDS ORDERED: chlordiazePOXIDE HCL 10 MG CAPSULE PO ONE (05:00)
== END 2023-03-11 10:36 | disposition left against medical advice (07) | DRG 770 ==
LOC: YASAS 10:52 → Y6N 13:02
PROVIDERS: ADMIT Allergy & Immunology; ATTEND Surgery
PROC: HZ2ZZZZ Detoxification Services for Substance Abuse Treatment (ICD-10-PCS; principal; 2023-03-08)
DX: F10.230 Alcohol dependence with withdrawal, uncomplicated (principal); F20.9 Schizophrenia, unspecified; G47.00 Insomnia, unspecified; I10 Essential (primary) hypertension; K21.9 Gastro-esophageal reflux disease without esophagitis; K08.89 Other specified disorders of teeth and supporting structures; K13.79 Other lesions of oral mucosa; R74.01 Elevation of levels of liver transaminase levels; R11.10 Vomiting, unspecified; Z87.891 Personal history of nicotine dependence; Z86.69 Personal history of other diseases of the nervous system and sense organs
CPT/HCPCS: 36415; 80053; 85027; 86780; 87635; Q0162

== ENCOUNTER 2023-03-09 07:39 | Emergency (ER) | payer OTHER ==
[2023-03-09] MEDS ORDERED: SODIUM CHLORIDE 0.9% 500 ML INFUS.BAG IV ONE (07:50)
[2023-03-09] MEDS ORDERED: FAMOTIDINE 20 MG/50 ML IVPB 20 MG/50 ML MG IVPB ONE ×2 (07:50→08:12)
[2023-03-09 07:59] VITALS: TEMP 98.6; BMI 21.6
[2023-03-09] MEDS ORDERED: ONDANSETRON 4 MG/2 ML VIAL IVPB ONE (08:03)
[2023-03-09] MEDS ORDERED: ONDANSETRON 4 MG/2 ML VIAL ONE (08:12)
[2023-03-09] MEDS ORDERED: MAG HYDROX/AL HYDROX/SIMETH 30 ML UNIT-DOSE CUP PO ONE (08:42)
[2023-03-09 08:56] LABS: BASO % 3.4 % (0-2.0); EOS % 0.4 % (0-4.5); HEMATOCRIT 37.5 % (35.4-49); HEMOGLOBIN 12.1 GM/dL (11.7-16.9); LYMPH % 25.7 % (8-40); MCH 29.7 pg (25.7-33.7); MCHC 32.2 g/dl (32.0-35.9); MEAN PLT VOLUME 8.3 fl (7.5-11.1); NEUT % 58.5 % (42.8-82.8); PLATELET COUNT 198 10^3/uL (134-434); RBC 4.07 M/mm3 (4.00-5.60); RDW 16.7 % (11.9-15.9); WHITE BLOOD COUNT 6.8 K/mm3 (4.0-10.0)
[2023-03-09 09:04] LABS: INR 1.05 (0.83-1.09); PROTHROMBIN TIME (PATIENT) 12.2 SEC (9.7-13.0)
[2023-03-09 09:07] LABS: ACTIVATED PTT 28.4 SECONDS (25.2-36.5)
[2023-03-09 09:15] LABS: POTASSIUM 4.3 mmol/L (3.5-5.1)
[2023-03-09 09:18] LABS: CALCIUM 9.5 mg/dL (8.5-10.1)
[2023-03-09 09:19] LABS: ALBUMIN 3.6 g/dl (3.4-5.0); BLOOD UREA NITROGEN 7.9 mg/dL (7-18); MAGNESIUM 1.5 mg/dL (1.8-2.4)
[2023-03-09 09:22] LABS: PHOSPHOROUS 2.8 mg/dL (2.5-4.9)
[2023-03-09 09:23] LABS: BILIRUBIN,TOTAL 2.1 mg/dL (0.2-1); TOT PROT 7.9 g/dl (6.4-8.2)
[2023-03-09] MEDS ORDERED: MAGNESIUM OXIDE 400 MG TABLET (FP) PO ONE (09:37)
[2023-03-09] MEDS ORDERED: MAG HYDROX/AL HYDROX/SIMETH 30 ML UNIT-DOSE CUP ONE (09:41)
[2023-03-09] MEDS ORDERED: MAGNESIUM OXIDE 400 MG TABLET (FP) ONE (09:41)
[2023-03-09] MEDS ORDERED: chlordiazePOXIDE HCL 25 MG CAPSULE ONE (10:18)
[2023-03-09] MEDS ORDERED: chlordiazePOXIDE HCL 25 MG CAPSULE PO ONE ×2 (10:19→12:00)
[2023-03-09 10:26] VITALS: BP 154/105; PULSE 99; RESP 14
== END 2023-03-09 10:30 | disposition home or self-care (01) ==
LOC: JER 07:39
PROC: 3E033GC Introduction of Other Therapeutic Substance into Peripheral Vein, Percutaneous Approach (ICD-10-PCS; principal; 2023-03-09)
PROC: 3E033GC Introduction of Other Therapeutic Substance into Peripheral Vein, Percutaneous Approach (ICD-10-PCS; 2023-03-09)
DX: R11.2 Nausea with vomiting, unspecified (principal); R10.13 Epigastric pain; R68.83 Chills (without fever); F10.230 Alcohol dependence with withdrawal, uncomplicated
CPT/HCPCS: 36415; 80053; 83690; 83735; 84100; 84484; 85025; 85610; 85730; 93005; 93010; 99284-25